=== PATIENT | female | born 1960 | race Caucasian/White ===

== ENCOUNTER 2021-10-16 15:53 | Outpatient (REF) | payer BC, SELFPAY ==
[2021-10-16 17:14] LABS: ALT 35 U/L (14-59); AST 27 U/L (15-37); Alkaline Phosphatase 66 U/L (46-116); Anion Gap 6.8 mmol/L (3-11); BUN 14 mg/dL (7-18); Bilirubin, Total 0.4 mg/dL (0.2-1.0); CO2 28.2 mmol/L (21.0-32.0); CREATININE 0.7 mg/dL (0.55-1.02); Calculated LDL 168 mg/dL (<100); Chloride 104 mmol/L (98-107); Cholesterol 262 mg/dL (<200); Glucose 87 mg/dL (74-106); HDL Cholesterol 77 mg/dL (40-60); Potassium 3.9 mmol/L (3.5-5.1); Sodium 139 mmol/L (136-145); TSH (W/Ref FT4) 1.36 uIU/mL (0.36-3.74); Total Protein 7.4 g/dL (6.4-8.2); Triglyceride 88 mg/dL (<150)
[2021-10-16 17:36] LABS: Hemoglobin A1C 5.5 % (<5.7)
== END 2021-10-16 15:54 | disposition home or self-care (01) ==
LOC: NCHCN 15:53
PROVIDERS: Visit Provider Nurse Practitioner Family
DX: Z00.00 Encounter for general adult medical examination without abnormal findings (principal); E06.3 Autoimmune thyroiditis; E78.5 Hyperlipidemia, unspecified; Z13.1 Encounter for screening for diabetes mellitus
CPT/HCPCS: 80053; 80061; 83036; 84443

== ENCOUNTER 2022-11-07 10:23 | Outpatient (REF) | payer BC, SELFPAY ==
[2022-11-07 14:40] LABS: HCT 40.1 % (36.0-46.0); HGB 13.5 g/dL (11.2-15.7); MCH 31.4 pg (27.0-33.0); MCHC 33.7 % (32.0-36.0); MCV 93 fL (80-95); MPV 9.5 fL (8.0-11.0); Platelet Count 291 10^3/uL (130-400); RDW 12.5 % (11.7-14.6); RDW-SD 43.1 fL
[2022-11-07 15:09] LABS: ALT 32 U/L (14-59); AST 26 U/L (15-37); Albumin 3.6 g/dL (3.4-5.0); Alkaline Phosphatase 68 U/L (46-116); Anion Gap 8.8 mmol/L (3-11); BUN 14 mg/dL (7-18); Bilirubin, Total 0.4 mg/dL (0.2-1.0); CO2 26.2 mmol/L (21.0-32.0); CREATININE 0.7 mg/dL (0.55-1.02); Calcium 8.9 mg/dL (8.5-10.1); Calculated LDL 156 mg/dL (<100); Chloride 110 mmol/L (98-107); Cholesterol 241 mg/dL (<200); Estimated GFR 99.57 (mL/min/1.73m2); Glucose 89 mg/dL (74-106); HDL Cholesterol 64 mg/dL (40-60); Potassium 4.1 mmol/L (3.5-5.1); Sodium 145 mmol/L (136-145); TSH (W/Ref FT4) 3.02 uIU/mL (0.36-3.74); Total Protein 7.2 g/dL (6.4-8.2); Triglyceride 105 mg/dL (<150)
== END 2022-11-07 10:24 | disposition home or self-care (01) ==
LOC: NCHCN 10:23
PROVIDERS: Visit Provider Family Medicine
DX: E03.9 Hypothyroidism, unspecified (principal); E78.5 Hyperlipidemia, unspecified; E66.9 Obesity, unspecified
CPT/HCPCS: 80053; 80061; 85027; 84443

== ENCOUNTER 2023-03-04 09:38 | Outpatient (REF) | payer BC, SELFPAY ==
--- OUTSIDE RECORDS SUMMARY | 2023-03-04 09:41 | XMS_ITS | Patient Health Record ---
Author Name Unknown Organization [facility] Address [facility] [place] [address] Care Team Providers Care Contact Lens Molder Name Role Phone [facility], . Primary Care Prov ider Unavailable Nasreen Loera MD Unavailable [phone] ALLERGIES Allergen (clinical drug ingredient) Drug/Non Drug Allergy documented on EMR Reaction Allergy Type Onset Date Status citalopram Citalopram Hydrobromide Unknown Drug Allergy Active REASON FOR REFERRAL No Information MEDICATIONS Medication SIG (Take, Route, Frequency, Duration) Notes Start Date End Date Status Levothyroxine Sodium 50 MCG Orally Active Potassium Not-Taking Gelatin Not-Taking Multivitamin occ Not-Gaurav ing Estradiol 0.1 MG/GM _insert 1 GRAM VAGIN AL TWO TIMES A WEEK 90 DAYS for 90 Active Fluconazole 150 MG 2 tablets Orally 300 mg once, repeat in 1 week for 7 days 01/31/2021 Not-Taking Aspirin 81 MG Orally Once a day Not-Taking Probiotic Not-Taking Selenium Not-Taking SOCIAL HISTORY Tobacco Use: Social History Observation Description Date Details (start date - stop date) Former Smoker NA - NA Sex Assigned At : Social History Observation Description Sex Assigned At Unknown Smoking Question Answer Notes Are you a: former smoker PROBLEMS Problem Type ICD Code Onset Dates Problem Status W/U Status Risk SNOMED Code Notes Problem Menopausal and female climacteric states (N95.1) Active confirmed Menopause (336691896) Problem Postmenopausal atrophic vaginitis (N95.2) Active confirmed Postmenopa usal atrophic vaginitis (21136626) Encounters Encounter Location Date Provider Diagnosis [facility] [address] [place] [address] 05/25/2022 Nasreen Loera [facility] [address] [place] [address] 05/27/2022 [facility] [address] [place] [address] 05/27/2022 [facility] [address] [place] [address] 05/27/2022 [facility] [address] [place] [address] 05/28/2022 [facility] [address] [place] [address] 05/30/2022 [facility] [address] [place] [address] 05/30/2022 [facility] [address] [place] [address] 10/01/2022 [facility] [address] [place] [address] 03/04/2023 Nasreen Loera PLAN OF TREATMENT No Information Insurance Providers Payer Name Payer Address Payer Phone Subscriber Number Group Number Insured Name Patient Relationship to Insured Coverage Start Date Coverage End Date [facility] [address] [place] [phone] [id number] Ranjanamohit Liana Self - patient is the insured MEDICAL (GENERAL) HISTORY Medical History History ICD Code hypercholesterolemia osteoarthritis hypothryroidism Denies abnormal PAP hx last PAP: 01/03/15 NIL, HPV negative Surgical History Surgery Date(Month/Year) cholecystectomy , BTL tonsillectomy laparoscopic procedure for ectopic pregn aidan age 18
[2023-03-04 15:56] LABS: Anion Gap 9.5 mmol/L (3-11); BUN 8 mg/dL (7-18); CO2 27.5 mmol/L (21.0-32.0); CREATININE 0.9 mg/dL (0.55-1.02); Calcium 9.6 mg/dL (8.5-10.1); Chloride 103 mmol/L (98-107); Estimated GFR 73.19 (mL/min/1.73m2); Glucose 91 mg/dL (74-106); Potassium 4.1 mmol/L (3.5-5.1); Sodium 140 mmol/L (136-145)
== END 2023-03-04 09:39 | disposition home or self-care (01) ==
LOC: NCHCN 09:38
PROVIDERS: PCP Family Medicine; Visit Provider Family Medicine
DX: I10 Essential (primary) hypertension (principal)
CPT/HCPCS: 80048